=== PATIENT | male | born 1965 | race Caucasian/White ===

== ENCOUNTER 2016-10-13 21:46 | Emergency (ER) | payer MEDICARE ==
[~2016-10-13] VITALS: Ht 175.3 cm; Wt 86.4 kg
[~2016-10-13 21:46] MED LIST: OXYC1TAB24 PO; SULI200T79 PO
[2016-10-13 21:52] VITALS: BP 130/87; PULSE 77; RESP 18; O2SAT 96
--- NOTE | 2016-10-13 22:45 | ED.REPORT ---
HPI-General Illness Date of Service Oct 13, 2016 ED Provider: Darrel Adler MD Patient is a 51 year old male with a history of pancreatic cancer in remission and chronic back pain on Suboxone who presents to the ED with back pain after 3x ground level falls yesterday, complaining that he feels light headed prior to these falls. Patient states that he suddenly became light headed and feels as if he is going to pass out, causing him to fall backwards onto the ground. The patient reports hitting his head but denies actual loss of consciousness. Patient denies being dehydrated and states that he is drinking fluids. Patient reports increased swelling in his legs for the past 6 months. Patient denies previously having a blood clot or recent long plane/car rides.Patient admits to being constipated due to his Suboxone. Patient denies sustaining any other injuries, dysuria, hematuria, abdominal pain, diarrhea, fever, chills, nausea, vomiting, or cough. The patient lives in [place] but came to [facility] because [facility] is typically very busy. Patient denies previous stroke. Nursing Notes Stated Complaint: MULTIPLE FALLS Chief Complaint: General Complaint Nursing Notes Reviewed: Yes Allergies: Coded Allergies: sincalide (Verified Allergy, Unknown, unknown, 08/27/16) sulfamethoxazole (Verified Allergy, Unknown, unknown, 08/27/16) Uncoded Allergies: AMPICILLIN-SULBACTAM (Allergy, Unknown, unknown, 08/13/16) HALDOPERIDOL (Allergy, Unknown, angry, 08/13/16) SULFA (Allergy, Unknown, unknown, 08/13/16) Scheduled Sulindac (Sulindac) 200 Mg Tablet 200 MG PO BID Scheduled PRN oxyCODONE-Acetaminophen 5-325 mg (oxyCODONE-Acetaminophen 5-325 mg) 1 Each Tablet 1-2 TAB PO Q6H PRN PRN For Pain General Time Seen by MD: 22:45 Chief Complaint Other (multiple falls) Hx Obtained From: Patient Arrived By: Walk-in Sudden in Onset?: No Onset Occurred: Yesterday Symptom Duration: Intermittent Severity: Current: No pain currently Severity: Maximum: No pain Recent Healthcare: No recent doctor visit, No recent hospitalization Similar Sx Previous: No Past Medical History Past Medical History torn left meniscus and a compression fracture lateral femoral condyle per MRI report Hx pancreatic cancer S/P chemo and whipple Reports: Depression Past Surgical History Whipple procedure Smoking History Former Smoker Social History Alcohol Use: Denies alcohol use Other Social History: Good social support, Local resident Ambulatory Status Independent Review of Systems Full Review of Systems Constitutional: Denies: Chills, Fever GI: Reports: Constipation, Nausea, Vomiting, Denies: Diarrhea Male: Denies Dysuria, Denies Hematuria Musculoskeletal: Reports: Extremity swelling, Denies: Extremity pain, Neck pain Neurologic: Reports: Dizziness, Headache, Lightheaded, Denies: Change LOC Complete sys rev & neg: except as marked. Physical Exam Vital Signs Vital Signs Date Time Temp Pulse Resp B/P Pulse Ox O2 Delivery O2 Flow Rate FiO2 10/14/16 05:45 67 20 120/79 97 Room Air 10/14/16 02:04 78 127/83 10/14/16 02:03 77 121/67 10/14/16 02:03 80 124/79 10/13/16 21:52 36.6 77 18 130/87 96 Room Air Initial VS: Reviewed Skin: Warm, Dry, No cyanosis Psychiatric: Mood/affect normal, Behavior normal, Normal thought content General/Constitutional: Awake, Alert, No acute distress Head / Eyes: Atraumatic, Normocephalic, PERRL, EOMI scrapes on the face from shaving, localized to the alvarez area ENT: Airway patent Mouth: Positive: Mucous membranes dry Neck: Supple, Full range of motion Respiratory / Chest: Breath sounds NL, Breath sounds = bilat, No respiratory distress, No rales, No rhonchi, No wheezing Cardiovascular: Heart rate NL, Regular rhythm, Heart sounds NL, No murmurs Abdomen: Soft, Non-tender, No guarding, No rebound Lower Extremity / Pelvis / MS: Neurologic intact, Vascular intact pitting 2+ edema to bilateral lower extremities, with haziness Neurologic: Oriented X3, Speech NL, No motor deficits, No sensory deficits, CN II - XII intact tongue protrudes to the right, but moves normally otherwise Interpretation & Diagnostics Lab Results Interpretation Result Diagram: 10/14/16 0025 10/14/16 0025 Test 10/14/16 00:25 10/14/16 02:00 White Blood Count 5.7th/mm3 (3.8-10.1) Red Blood Count 3.89mil/mm3 (4.40-5.80) Hemoglobin 10.9g/dL (13.8-17.2) Hematocrit 33.5% (41.0-50.0) Mean Corpuscular Volume 86.1fL (81-100) Mean Corpuscular Hemoglobin 28.0pg (27.0-35.0) Mean Corpuscular Hemoglobin Concent 32.5% (32.0-37.0) Red Cell Distribution Width 13.6% (12.3-15.4) Platelet Count 209bil/L (150-400) Neutrophils (%) (Auto) 57.1% (40-74) Lymphocytes (%) (Auto) 17.5% (14-46) Monocytes (%) (Auto) 20.4% (4-12) Eosinophils (%) (Auto) 4.4% (0-5) Basophils (%) (Auto) 0.4% (0-3) Prothrombin Time 10.9sec (8.1-12.5) Prothromb Time International Ratio 1.02ratio Activated Partial Thromboplast Time 25.9sec (22.8-33.0) D-Dimer 1.5mg/L (<0.50) Sodium Level 136mEq/L (134-144) Potassium Level 4.7mEq/L (3.5-5.2) Chloride Level 99mEq/L (97-108) Carbon Dioxide Level 25mmol/L (18-29) Blood Urea Nitrogen 20mg/dL (6-24) Creatinine 0.48mg/dL (0.76-1.27) Estimat Glomerular Filtration Rate 196mL/min (>59) Glucose Level 113mg/dL (60-99) Calcium Level 8.5mg/dL (8.5-10.1) Magnesium Level 2.0mg/dL (1.6-2.6) Total Bilirubin 0.4mg/dL (0.0-1.2) Aspartate Amino Transf (AST/SGOT) 39U/L (0-50) Alanine Aminotransferase (ALT/SGPT) 16U/L (0-44) Alkaline Phosphatase 121U/L (25-150) Troponin T 0.010ug/L (0.0-0.011) Pro-B-Type Natriuretic Peptide 104.4pg/mL (0-121) Total Protein 6.7g/dL (6.4-8.4) Albumin 3.7g/dL (3.4-5.0) Urine Color Yellow (YELLOW) Urine Appearance Clear (CLEAR,HAZY) Urine pH 7.0 (5.0-8.0) Urine Specific [place] 1.015 (1.003-1.035) Urine Protein Negativemg/dL (NEG,TRACE) Urine Glucose (UA) Negativemg/dL (NEGATIVE) Urine Ketones Negativemg/dL (NEGATIVE) Urine Occult Blood Negative (NEGATIVE) Urine Nitrite Negative (NEGATIVE) Urine Bilirubin Negative (NEGATIVE) Urine Urobilinogen Normalmg/dL (NORMAL) Urine Leukocyte Esterase Negative (NEGATIVE) Urine RBC 0-2/hpf (0-2) Urine WBC 0-5/hpf (0-5) Urine Epithelial Cells Occasional/hpf (NONE-MOD) Urine Crystals None seen (NONE SEEN) Urine Bacteria None/hpf (NONE-FEW) Urine Hyaline Casts None/lpf (NONE) Urine Granular Casts None seen (NONE SEEN) Urine Waxy Casts None seen (NONE SEEN) Urine Red Blood Cell Casts None seen (NONE SEEN) Urine White Blood Cell Casts None seen (NONE SEEN) Urine Mucus None seen (None Seen) Urine Trichomonas None seen (NONE SEEN) Urine Yeast None (NONE SEEN) Urine Culture Reflexed Not indicated ECG Interpretation ECG Interpretation: Sinus Rhythm, Rate 64 Nonspecific IVCD ? anteroseptal infarct Time: 00:07 Interpreted by: ED physician X-Ray Chest Interpretation Chest Xray Interpretation: Impression: No acute process. View: Portable Interpretation / Wet Read by: Wet read ED physician CT Head Interpretation CONCLUSION: Mild cortical atrophy. Otherwise, normal exam. No acute intracranial abnormality. Radiologist: Shea Leo MD 10/14/2016 - 1:06:26 AM [facility] Study: Head CT no contrast Interpretation / Wet Read by: Interpret - Radiologist CT Chest Interpretation CONCLUSION: No evidence of pulmonary embolism. Prominent mediastinal adenopathy, nonspecific, may be reactive, though neoplasm not excluded. There is also haziness around the upper abdominal vessels and mesentery, then branching intrahepatic air, nonspecific and not fully evaluated. Ultrasound, to rule out portal vein thrombus may be considered, though eventually CT abdomen and pelvis may be necessary for further evaluation. Radiologist: Shea Leo MD 10/14/2016 - 2:58:21 AM [facility] Study type: CT pulm angiogram Interpretation / Wet Read by: Interpret - Radiologist, Discussed w radiologist CT Abd / Pelvis Interpretation CONCLUSION: Moderate mesenteric edema in the upper abdomen, nonspecific, and not optimally evaluated on this noncontrast exam. No SBO. Nonvisualized appendix. No intrahepatic air is nonspecific, may be secondary to cholecystectomy. Radiologist: Shea Leo MD 10/14/2016 - 3:44:37 AM [facility] Study type: Abdominal CT no contrast Interpretation / Wet Read by: Interpret - Radiologist Re-Eval/Medical Decision Med Decision/Clinical Course 51-year-old presents with multiple episodes of loss of balance and falling, without obvious precipitant. He had an episode of this year so ago but did not present for evaluation. CT of his cranium is negative. Labs are unremarkable except for a d-dimer that is elevated. CT angiogram shows no evidence of clot, but there is air in the biliary tree. Completion of his abdomen and pelvis was CT does not reveal any additional findings. He appeared mildly dehydrated on arrival was improved after fluid here is discharged in stable condition for follow-up with PCP. Adenopathy is upper chest is likely known to his physician but needs follow-up. Source of Hx: Old records Time of Eval: 01:30 Re-Evaluation/Progress Note: Informed the patient of the finding of an elevated d-dimer. Will order a CT scan of his chest. Time of Eval: 05:32 Patient Status: Condition improved Re-Evaluation/Progress Note: Rechecked the patient. Informed him of the results. No acute findings. Patient understands and agrees with the plan to be discharged home. Discharge instructions and follow-up discussed. All questions were addressed. Return to the ED warnings given. Counseled Regarding: Diagnosis, Lab results, Need for follow-up, When/why to return to ED Discharge & Departure Primary Impression: Dizziness Additional Impressions: Multiple falls Mediastinal lymphadenopathy Disposition: Home Discharge Condition All VS Reviewed: Yes Condition: Stable Patient Instructions: Syncope (ED) Additional Instructions: You have lymph nodes in your upper chest that are probably known to your doctors , and needed follow-up. We find no other significant pathology. There is no evidence of clot in your lung, no evidence of heart attack, and no evidence of significant changes in your blood pressure with changes in posture. You appeared mildly dehydrated on intake, and have improved. Continue to maintain your hydration. Consider using a cane or other support to prevent falls. Follow-up as your doctor. Call today. Return if any immediate issues. Referrals: OTHER,PHYSICIAN Castillo Attestation Portions of this note were transcribed by Marlin Fatima. I, Dr. Adler personally performed the history, physical exam and medical decision-making; I reviewed and confirmed the accuracy of the information in the transcribed note. Signed by: Jonathan Bhatt, 10/14/2016 0545 copies to: MARK,Darrel Toribio MD Oct 13, 2016 22:45 Marlin Fatima Oct 14, 2016 00:08
[2016-10-14 01:15] LABS: D-DIMER 1.5 mg/L (<0.50); INR 1.02 ratio
[2016-10-14 01:18] LABS: BASOPHILS % (AUTO) 0.4 % (0-3); EOSINOPHILS % (AUTO) 4.4 % (0-5); MONOCYTES % (AUTO) 20.4 % (4-12); Mean Corpuscular Volume 86.1 fL (81-100); NEUTROPHILS % (AUTO) 57.1 % (40-74); Platelet Count 209 bil/L (150-400)
[2016-10-14 01:33] LABS: TROPONIN T 0.01 ug/L (0.0-0.011)
[2016-10-14 02:03] VITALS: BP_SYST 121; BP_SYST 124; BP_DIAS 67; BP_DIAS 79; PULSE 77; PULSE 80
[2016-10-14 02:04] VITALS: BP 127/83; PULSE 78
[2016-10-14 02:45] LABS: APPEARANCE,URINE CLEAR (CLEAR,HAZY); COLOR,URINE YELLOW (YELLOW)
[2016-10-14 02:46] LABS: OCCULT BLOOD,URINE NEGATIVE (NEGATIVE); UROBILINOGEN,URINE NORMAL (NORMAL)
[2016-10-14 05:45] VITALS: BP 120/79; PULSE 67; RESP 20; O2SAT 97
--- NOTE | 2016-10-14 09:32 | DRSVH ---
PROCEDURE: CT BRAIN WITHOUT CONTRAST ([id number]) INDICATIONS: falls, dizziness TECHNIQUE: Noncontrast 4.5 mm thick angled axial sections acquired from the foramen magnum to the vertex, with c oronal reformats. COMPARISON: None. FINDINGS: Image quality: Excellent. CSF spaces: Basal cisterns are patent. No extra-axial fluid collections. The ventricles are symmet alejandro in size and shape. Brain: No intracranial bleeds or masses. There is cerebral volume loss for age, with resultant vent ricular and sulcal prominence. There are periventricular and deep white matter chronic small vessel ischemic changes. There is intracranial internal carotid artery atherosclerosis. Skull and face: Deformity of the right lamina papyracea noted most compatible with a remote fracture . Calvarium appears intact, without suspicious lesions. Sinuses: Visualized sinuses and mastoids are clear. IMPRESSION: No acute intracranial disease process. Dictated by: Jeanine Avila MD, PhD on 10/14/2016 at 9:30 Approved by: Jeanine Avila MD, PhD on 10/14/2016 at 9:30
--- NOTE | 2016-10-14 09:46 | DRSVH ---
PROCEDURE: CT ANGIO CHEST PULMONARY EMBOLISM ([id number]) INDICATIONS: near syncope elevated d dimer TECHNIQUE: After the administration of intravenous contrast, 2 mm thick sections acquired from the pulmonary api idalia to the posterior costophrenic angles. 3-dimensional maximum intensity projection (MIP) coronal a nd sagittal reformats were then acquired through the thorax. For radiation dose reduction, the follo wing was used: automated exposure control, adjustment of mA and/or kV according to patient size. COMPARISON: None. FINDINGS: Image quality: Excellent. Pulmonary arteries: Pulmonary arteries are normal in size, and demonstrate no intraluminal filling d efects to suggest central pulmonary embolism. Lungs and pleura: Lungs are clear. No pleural effusions or pneumothorax. Central and peripheral ai rways are patent. Mediastinum: Heart size is normal, without pericardial effusion. Multiple enlarged mediastinal lymph nodes are noted. Multiple, bilateral supraclavicular lymph nodes are noted which do not meet patholo gic size criteria. Thoracic aorta is normal in caliber and enhancement. Esophagus is normal in calib er, without hiatal hernia. Bones and chest wall: Chronic appearing T12 compression fracture noted. Ribs and thoracic spine appea r intact throughout. . No axillary or supraclavicular adenopathy. Abdomen: The gallbladder surgically absent. Mild inflammatory stranding noted adjacent to the portal vein and superior mesenteric vein and thrombosis cannot be excluded. IMPRESSION: 1. No pulmonary embolus. 2. Mediastinal lymphadenopathy should be reactive or neoplastic. Please correlate with clinical and l aboratory data. 3. Inflammatory changes adjacent to the visualized portions of the superior mesenteric vein and the p ortal vein in the upper abdomen. Venous thrombosis cannot be excluded. Recommend abdominal ultrasound with Doppler for further evaluation. 4. No acute lung opacities. Dictated by: Jeanine Avila MD, PhD on 10/14/2016 at 9:44 Approved by: Jeanine Avila MD, PhD on 10/14/2016 at 9:44
--- NOTE | 2016-10-14 10:03 | DRSVH ---
PROCEDURE: X-RAY CHEST ONE VIEW, PORTABLE ([id number]) INDICATIONS: multiple falls TECHNIQUE: One view of the chest was acquired. COMPARISON: [facility], CT, CT ANGIO CHEST PE, 10/14/2016, 2:21. FINDINGS: Surgical changes and devices: None. Lungs and pleura: No pleural effusions or pneumothorax. Lungs are clear. Mediastinum: Mediastinal contours appear normal. Heart size is normal. Bones and chest wall: No suspicious bony lesions. Overlying soft tissues appear unremarkable. IMPRESSION: No acute cardiopulmonary disease. Dictated by: Shimon Soares [facility] Interpreted: Jeanine Avila MD on 10/14/2016 at 10:03 Transcribed by: CECE on 10/14/2016 at 10:03 Approved by: Jeanine Avila MD, PhD on 10/14/2016 at 16:34
--- NOTE | 2016-10-14 10:05 | DRSVH ---
PROCEDURE: CT ABDOMEN AND PELVIS WITHOUT CONTRAST ([id number]) INDICATIONS: hepatic air on chest ct TECHNIQUE: Noncontrast 5 mm thick sections acquired from the diaphragms to the symphysis. 5 mm coronal and sagi ttal reformats were then performed. For radiation dose reduction, the following was used: automated exposure control, adjustment of mA and/or kV according to patient size. COMPARISON: None. FINDINGS: Image quality: Excellent. ABDOMEN: Lung bases: Lung bases are clear. Heart size is normal. Solid organs: Liver and spleen are normal in size. Gallbladder is surgically absent. Biliary tree i s nondilated. Pneumobilia is noted possibly related to prior sphincterotomy; please correlate with cl inical history. Pancreas is normal in contours. No adrenal nodules. Kidneys are normal in size, wi thout hydronephrosis or nephrolithiasis. Peritoneum and bowel: Unenhanced bowel loops demonstrate normal wall thickness and caliber. Moderate amount of stool noted throughout the colon. No free fluid or air. Nodes and vessels: No retroperitoneal or mesenteric adenopathy by size criteria. Inflammatory change s noted in the root of the mesentery along the course of the superior mesenteric vein and superior me senteric vein branches. Numerous prominent mesenteric lymph nodes are noted which do not meet patholo gic size criteria. Aorta and inferior vena cava are normal in caliber. Miscellaneous: No ventral hernias. PELVIS: Genitourinary: Diffusion bladder wall thickening is noted. Bladder wall trabeculation is noted. Findi ngs suspicious for a chronic inflammatory process; please correlate with clinical and urinalysis data .. Miscellaneous: No inguinal hernias. Bilateral inguinal lymphadenopathy is noted. Largest right ingui nal node measures 1.3 cm in short axis. The largest left inguinal lymph node measures 1.7 cm in short axis. Bones: No suspicious bony lesions. Chronic T12 compression fractures noted. IMPRESSION: 1. Bilateral inguinal lymphadenopathy. Given mediastinal lymphadenopathy identified by CT scan of the chest obtained 10/14/16. Findings suspicious for neoplastic process including lymphoma. 2. Stranding in the root of the mesentery with numerous prominent lymph nodes scattered throughout th e mesentery. Finding is nonspecific may be related to neoplastic or infectious etiologies. 3. Status post cholecystectomy. 4. Pneumobilia posteriorly to the prior sphincterotomy. Please correlate with clinical history. 5. Moderate fecal loading throughout the colon. Dictated by: Jeanine Avila MD, PhD on 10/14/2016 at 10:04 Approved by: Jeanine Avila MD, PhD on 10/14/2016 at 10:04
== END 2016-10-14 05:37 | disposition home or self-care (01) ==
LOC: SED 21:46
DX: R42 Dizziness and giddiness (principal); R59.0 Localized enlarged lymph nodes; E86.0 Dehydration; R29.6 Repeated falls; W18.30XA Fall on same level, unspecified, initial encounter; Y93.89 Activity, other specified; Y99.8 Other external cause status; Y92.9 Unspecified place or not applicable; Z85.07 Personal history of malignant neoplasm of pancreas; Z90.49 Acquired absence of other specified parts of digestive tract; Z87.891 Personal history of nicotine dependence; Z88.2 Allergy status to sulfonamides; Z88.1 Allergy status to other antibiotic agents; Z88.8 Allergy status to other drugs, medicaments and biological substances
CPT/HCPCS: 36415; 70450; 71010; 71275; 74176; 80053; 81000; 83036; 83735; 83880; 84484; 85025; 85379; 85610; 85730; 93005; 99285; Q9967

== ENCOUNTER 2016-12-29 00:24 | Emergency (ER) | payer MEDICARE ==
[~2016-12-29] VITALS: Ht 177.8 cm; Wt 82.3 kg
[2016-12-29 00:28] VITALS: BP 113/81; PULSE 86; RESP 16; O2SAT 98
--- NOTE | 2016-12-29 01:08 | ED.REPORT ---
HPI-General Illness Date of Service Dec 29, 2016 ED Provider: Dr. Adler. A 51 year old male presents to the ED with GLF, landing on his right side and right elbow yesterday at 0330. He thinks that he may have broken a couple of ribs. He denies any fever, cough, or abdominal pain. He denies being on any pain medications currently. Nursing Notes Stated Complaint: RIB PAIN Chief Complaint: Multiple Trauma/Fall Nursing Notes Reviewed: Yes Allergies: Coded Allergies: sincalide (Verified Allergy, Unknown, unknown, 08/27/16) sulfamethoxazole (Verified Allergy, Unknown, unknown, 08/27/16) Uncoded Allergies: AMPICILLIN-SULBACTAM (Allergy, Unknown, unknown, 08/13/16) HALDOPERIDOL (Allergy, Unknown, angry, 08/13/16) SULFA (Allergy, Unknown, unknown, 08/13/16) Scheduled Sulindac (Sulindac) 200 Mg Tablet 200 MG PO BID Scheduled PRN Ibuprofen (Ibuprofen) 600 Mg Tablet 600 MG PO QID PRN PRN For Pain oxyCODONE-Acetaminophen 5-325 mg (oxyCODONE-Acetaminophen 5-325 mg) 1 Each Tablet 1-2 TAB PO Q6H PRN PRN For Pain General Time Seen by MD: 01:06 Chief Complaint Other (Pain in right elbow.) Hx Obtained From: Patient Arrived By: Walk-in Sudden in Onset?: No Onset Occurred: Yesterday Symptom Duration: Since onset Severity: Current: Moderate Severity: Maximum: Moderate Recent Healthcare: No recent doctor visit Similar Sx Previous: No Past Medical History Past Medical History Notes: Dr. Guillermina Conway at [facility] is his PCP. 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 Past Medical History torn left meniscus and a compression fracture lateral femoral condyle per MRI report Hx pancreatic cancer S/P chemo and whipple. 5 years out of it. The patient currently takes Rozerem. Reports: Depression Past Surgical History Whipple procedure Smoking History Former Smoker Social History Alcohol Use: Denies alcohol use Other Social History: Good social support, Local resident Ambulatory Status Independent Review of Systems Full Review of Systems Constitutional: Denies: Fever Respiratory: Denies: Non-productive cough GI: Denies: Abdominal pain Musculoskeletal: Reports: Extremity pain (Pain in right elbow.) Complete sys rev & neg: except as marked. Physical Exam Vital Signs Vital Signs Date Time Temp Pulse Resp B/P Pulse Ox O2 Delivery O2 Flow Rate FiO2 12/29/16 02:46 36.6 81 16 120/82 99 Room Air 12/29/16 00:28 36.3 86 16 113/81 98 Room Air Initial VS: Reviewed General/Constitutional: Awake, Alert Head / Eyes: Normocephalic, PERRL, EOMI ENT: Atraumatic, Airway patent Respiratory / Chest: Breath sounds NL, Breath sounds = bilat Patient may or may not have had bruising on their right ribs. There is slight discoloration of ribs on right side. No clicks or crepitace. Cardiovascular: Heart rate NL, Regular rhythm, Heart sounds NL Abdomen: No guarding, No rebound Upper Extremities Upper Extremity / MS: No swelling, No edema Lower Extremity / Pelvis / MS: No swelling, No edema Skin: Warm, Dry Neurologic: Oriented X3, Speech NL Interpretation & Diagnostics X-Ray Chest Interpretation Chest Xray Interpretation: IMPRESSION: No acute. No Fracture. 12/29/2016, 0247. Interpretation / Wet Read by: Wet read ED physician Re-Eval/Medical Decision Med Decision/Clinical Course 51-year-old presents with a stated fall and injury to right ribs. He was grossly evasive on the subject of pain medication and his sources of medical care. [facility]. Report discloses that he is on a pain contract on Suboxone. He had previously been here denying any pain medicines in any contact with pain physicians, and was given fifty oxycodone based on those statements. He states now that he personally took those and did not divert them. However, he also states he was on his Suboxone throughout, so what effect his oxycodone would even have is questionable. The fact that he is overtly been deceptive on the subject of narcotics was discussed with him directly, and we can obviously not provide narcotic pain relievers for him, absent strong clinical indication. He is discharged in stable condition. Source of Hx: Old records Time of Eval: 01:45 Re-Evaluation/Progress Note: Rechecked patient, explained test results, diagnosis, and plan for discharge. Patient understands and agrees with the plan. All questions addressed. Counseled Regarding: Diagnosis, When/why to return to ED Discharge & Departure Primary Impression: Rib injury Additional Impression: Drug-seeking behavior Disposition: Home Discharge Condition All VS Reviewed: Yes Condition: Stable Additional Instructions: There is no apparent fracture on the x-ray. An x-ray can miss a small nondisplaced fracture. We treat them essentially the same. It is important to take deep breaths, and we are providing an incentive spirometer to encourage that. Use your current pain meds. Follow-up with your doctor in the office It is illegal to misrepresent your medicines to the emergency physician in order to obtain pain medicines. Be advised that we have recorded this fact and you will not be afforded narcotic pain relievers without direct evidence of trauma or other strong indication. Follow-up with your doctor. A copy of this is being sent to your doctor. Referrals: OTHER,PHYSICIAN (PCP) (Family) Scribe Attestation Portions of this note were transcribed by Alfonso Jalloh. I, Dr. Adler personally performed the history, physical exam and medical decision-making; I reviewed and confirmed the accuracy of the information in the transcribed note. Signed by: Jonathan Castillo, 12/29/2016 0244. copies to: OTHER,PHYSICIAN; Layton Joseph Christopher W MD Dec 29, 2016 01:07 Alfonso Jalloh Dec 29, 2016 01:16
[2016-12-29] MEDS ORDERED: IBUP-1827 PO (02:29)
[2016-12-29 02:46] VITALS: BP 120/82; PULSE 81; RESP 16; O2SAT 99
--- NOTE | 2016-12-29 08:52 | DRSVH ---
PROCEDURE: X-RAY RIGHT RIBS INCLUDEING PA CHEST, MINUMUM THREE VIEWS ([id number]) INDICATIONS: fall, rt rib impact TECHNIQUE: 3 views of the right ribs were acquired, along with a single view chest. COMPARISON: None. FINDINGS: Surgical changes and devices: None. Bones and chest wall: No fractures or dislocations. No suspicious bony lesions. Overlying soft tis sues appear unremarkable. Lateral curvature of the spine. Lungs and pleura: No pleural effusions or pneumothorax. Lungs appear clear. Mediastinum: Mediastinal contours appear normal. Heart size is normal. IMPRESSION: No fracture No acute cardiopulmonary disease Dictated by: Evangelist Perez M.D. on 12/29/2016 at 8:50 Approved by: Evangelist Perez M.D. on 12/29/2016 at 8:52
== END 2016-12-29 02:49 | disposition home or self-care (01) ==
LOC: SED 00:24
DX: S29.9XXA Unspecified injury of thorax, initial encounter (principal); R07.81 Pleurodynia; W01.0XXA Fall on same level from slipping, tripping and stumbling without subsequent striking against object, initial encounter; Y93.01 Activity, walking, marching and hiking; Y99.8 Other external cause status; Y92.010 Kitchen of single-family (private) house as the place of occurrence of the external cause; Z71.51 Drug abuse counseling and surveillance of drug abuser; Z87.891 Personal history of nicotine dependence; Z88.0 Allergy status to penicillin; Z88.2 Allergy status to sulfonamides; Z88.8 Allergy status to other drugs, medicaments and biological substances